=== PATIENT | female | born 1995 | race Two or more races ===

== ENCOUNTER 2019-03-22 21:56 | Emergency (ER) | payer SELFPAY ==
--- NOTE | 2019-03-22 22:10 | NUR ---
CALLED PT IN WAITING ROOM. NO RESPONSE.
--- NOTE | 2019-03-22 22:14 | NUR ---
PL LEFT PER ADMITTING.
== END 2019-03-22 22:15 | disposition left against medical advice (07) ==
LOC: ER 22:02
DX: Z53.21 Procedure and treatment not carried out due to patient leaving prior to being seen by health care provider (principal)

== ENCOUNTER 2019-03-22 22:35 | Emergency (ER) | payer SELFPAY ==
[~2019-03-22] VITALS: Ht 154.9 cm; Wt 90.7 kg
[2019-03-22 22:48] VITALS: BP 128/75
--- NOTE | 2019-03-22 23:28 | NUR ---
CALLED PT IN WAITING ROOM. NO RESPONSE.
== END 2019-03-23 00:29 | disposition left against medical advice (07) ==
LOC: ER 22:42
DX: Z53.21 Procedure and treatment not carried out due to patient leaving prior to being seen by health care provider (principal)